=== PATIENT | female | born 1940 ===

== ENCOUNTER → 2018-03-22 19:25 | Outpatient (REF) | payer MEDICARE, SELFPAY ==
[2018-03-22 20:08] LABS: HEMOLYSIS 58 (0-50); Potassium 5.3 mmol/L (3.4-5.1)
== END ==
LOC: LAB 19:25
PROVIDERS: Visit Provider Family Medicine
DX: E87.8 Other disorders of electrolyte and fluid balance, not elsewhere classified (principal)
CPT/HCPCS: 36415; 84132

== ENCOUNTER → 2018-05-25 19:58 | Outpatient (REF) | payer MEDICARE, SELFPAY ==
[2018-05-25 20:32] LABS: Cholesterol 195 mg/dL (140-199); HDL Cholesterol 80 mg/dL (40-60); LDL Cholesterol Calculated 98 mg/dL (<100); Triglycerides 85 mg/dL (35-150)
== END ==
LOC: LAB 19:58
PROVIDERS: Visit Provider Family Medicine
DX: E78.5 Hyperlipidemia, unspecified (principal)
CPT/HCPCS: 36415; 80061